=== PATIENT | male | born 1980 | race Caucasian/White ===

== ENCOUNTER 2017-10-12 09:14 | Emergency (ER) | payer SELFPAY ==
[~2017-10-12] VITALS: Ht 175.3 cm; Wt 92.7 kg
[2017-10-12 10:17] LABS: INFLUENZA A NEGATIVE; INFLUENZA B NEGATIVE
[2017-10-12] MEDS ORDERED: TUSS PO (10:31)
[2017-10-12] MEDS ORDERED: MEDROL 4MG DOSPA4 MG PO (10:31)
[2017-10-12 10:56] VITALS: BP 136/91; PULSE 85; TEMP 98.8
== END 2017-10-12 10:55 | disposition home or self-care (01) ==
LOC: COL.ER 09:14
PROVIDERS: Emergency Medicine
DX: J06.9 Acute upper respiratory infection, unspecified (principal); M54.12 Radiculopathy, cervical region
CPT/HCPCS: J7509